=== PATIENT | female | born 1955 | race Caucasian/White ===

== ENCOUNTER 2022-05-09 20:42 | Inpatient (IN) ==
[2022-05-09 21:23] LABS: Basophils % 0.7 %; Eosinophils # 0.2 K/mcL (0.0-0.6); Eosinophils % 2.8 %; Hematocrit 32.2 % (35.3-44.9); Hemoglobin 10.6 g/dL (11.5-15.4); Immature Granulocytes % 0.3 % (0-4); Lymphocytes # 1.9 K/mcL (0.6-4.6); Lymphocytes % 30.6 %; Mean Corpuscular HGB Conc 32.9 g/dL (31.6-35.5); Mean Corpuscular Hemoglobin 30.5 pg (28.0-33.3); Mean Corpuscular Volume 92.5 fL (83.0-100.0); Mean Platelet Volume 8.4 fL (9.4-12.4); Monocytes # 0.6 K/mcL (0.0-1.3); Monocytes % 9.4 %; Neutrophils # 3.4 K/mcL (1.6-8.9); Platelet Count 389 K/mcL (140-400); Red Blood Count 3.48 M/mcL (3.82-4.97); Red Cell Distribution Width 13.6 % (11.5-14.5); Segmented Neutrophils % 56.2 %; White Blood Count 6.1 K/mcL (4.3-11.1)
[2022-05-09 21:43] LABS: Calcium 9.6 mg/dL (8.6-10.3); Potassium 4.2 mEq/L (3.5-5.1)
[2022-05-09 21:58] LABS: Bacteria,Urine Few per hpf (None-Few); Bilirubin,Urine Negative (Negative); Blood,Urine Negative (Negative); Clarity,Urine Clear (Clear); Color,Urine Light-Yellow (Yellow); Glucose,Urine (UA) Normal (Normal); Ketones,Urine Negative (Negative); Leukocyte Esterase,Urine Moderate (Negative); Nitrite,Urine Positive (Negative); Protein,Urine Negative (Neg-Trace); Specific Gravity,Urine 1.018 (1.010-1.025); Squamous Epithelial Cell,Urine Few per hpf (None-Few); Urobilinogen,Urine Normal (Normal); WBC,Urine 50-100 per hpf (0-3)
[2022-05-09] MEDS ORDERED: Ertapenem 1,000 MG in 0.9 % Sodium Chloride Mini Bag 100 ML IVPB ONE (22:10)
[2022-05-09] MEDS ORDERED: Naloxone 0.4 MG/ML INJ IVP PRN (22:30)
[2022-05-09] MEDS ORDERED: Melatonin 3 MG TABLET PO PRN (22:30)
[2022-05-09] MEDS ORDERED: Ondansetron ODT 4 MG TAB.RAPDIS SL PRN (22:30)
[2022-05-09] MEDS ORDERED: Dextrose Gel 15 GM/37.5 ML TUBE PO PRN ×2 (22:37)
[2022-05-09] MEDS ORDERED: *HR* Dextrose 50 % in Water (Syg) 50 ML SYRINGE IVP PRN (22:37)
[2022-05-09] MEDS ORDERED: D5% in Water 1,000 ML IVC PRN (22:37)
[2022-05-10] MEDS ORDERED: 0.9 % Sodium Chloride 1,000 ML IVC SCH (00:45)
[2022-05-10 05:22] LABS: Hematocrit 30.2 % (35.3-44.9); Hemoglobin 9.9 g/dL (11.5-15.4); Mean Corpuscular HGB Conc 32.8 g/dL (31.6-35.5); Mean Corpuscular Hemoglobin 30.4 pg (28.0-33.3); Mean Corpuscular Volume 92.6 fL (83.0-100.0); Mean Platelet Volume 8.3 fL (9.4-12.4); Platelet Count 328 K/mcL (140-400); Red Blood Count 3.26 M/mcL (3.82-4.97); Red Cell Distribution Width 13.5 % (11.5-14.5); White Blood Count 5.2 K/mcL (4.3-11.1)
[2022-05-10 05:42] LABS: Calcium 8.8 mg/dL (8.6-10.3); Magnesium 1.9 mg/dL (1.6-2.6); Phosphorous 3.4 mg/dL (2.7-4.5); Potassium 4.4 mEq/L (3.5-5.1)
[2022-05-10] MEDS: Insulin LISPRO 300 UNITS/3 ML VIAL SUBQ SCH ×4 (08:10→21:27)
[2022-05-10] MEDS: lisinopriL 10 MG TABLET PO SCH (18:33)
[2022-05-10] MEDS: CycloSPORINE, Mod (Neoral) 25 MG CAPSULE PO SCH (18:33)
[2022-05-10] MEDS: Pregabalin 25 MG CAPSULE PO SCH (21:26)
[2022-05-10] MEDS: mycophenolate mofetiL 250 MG CAPSULE PO SCH (21:27)
[2022-05-10] MEDS: Ertapenem 1,000 MG in 0.9 % Sodium Chloride Mini Bag 100 ML IVPB SCH (21:27)
[2022-05-10] MEDS: polyethylene glycoL 3350 17 GM POWD.PACK PO SCH (21:28)
[2022-05-10] MEDS: Insulin DETEMIR 100 UNIT/ML X5UNITS SUBQ SCH (21:41)
[2022-05-11 05:28] LABS: Eosinophils # 0.2 K/mcL (0.0-0.6); Eosinophils % 3.8 %; Hematocrit 32.5 % (35.3-44.9); Hemoglobin 10.6 g/dL (11.5-15.4); Lymphocytes # 1.7 K/mcL (0.6-4.6); Lymphocytes % 42.2 %; Mean Corpuscular HGB Conc 32.6 g/dL (31.6-35.5); Mean Corpuscular Hemoglobin 29.9 pg (28.0-33.3); Mean Corpuscular Volume 91.5 fL (83.0-100.0); Mean Platelet Volume 9.2 fL (9.4-12.4); Monocytes # 0.4 K/mcL (0.0-1.3); Monocytes % 10.6 %; Neutrophils # 1.7 K/mcL (1.6-8.9); Platelet Count 335 K/mcL (140-400); Red Blood Count 3.55 M/mcL (3.82-4.97); Red Cell Distribution Width 13.2 % (11.5-14.5); Segmented Neutrophils % 42.4 %
[2022-05-11 05:47] LABS: BUN/Creatinine Ratio 17 (6-26); Blood Urea Nitrogen 12 mg/dL (8-23); Calcium 9.4 mg/dL (8.6-10.3); Carbon Dioxide 24 mEq/L (23-29); Chloride 102 mEq/L (98-107); Glucose 106 mg/dL (70-105); Osmolality,Calculated 276 (280-300); Potassium 3.9 mEq/L (3.5-5.1); Sodium 133 mEq/L (136-145)
[2022-05-11] MEDS: Insulin LISPRO 300 UNITS/3 ML VIAL SUBQ SCH ×4 (07:33→19:32)
[2022-05-11] MEDS: clonazePAM 0.5 MG TABLET PO SCH (09:00)
[2022-05-11] MEDS ORDERED: NON-FORMULARY MEDICATION 1 EACH EACH (Omega-3/Dha/Epa/Fish Oil [Fish Oil 1,000 Mg Softgel] PO SCH (09:00)
[2022-05-11] MEDS ORDERED: Ezetimibe [Zetia] 10 MG Tablet PO SCH (09:00)
[2022-05-11] MEDS: Aspirin Enteric Coated 81 MG Tablet PO SCH (09:00)
[2022-05-11] MEDS ORDERED: NON-FORMULARY MEDICATION 1 EACH EACH (Calcium Citrate 200 MG Tablet) PO SCH (09:00)
[2022-05-11] MEDS: mycophenolate mofetiL 250 MG CAPSULE PO SCH ×2 (09:00→21:29)
[2022-05-11] MEDS: Lactobacillus 1 EACH CAP.SPRINK PO SCH (09:00)
[2022-05-11] MEDS: polyethylene glycoL 3350 17 GM POWD.PACK PO SCH ×2 (09:01→21:33)
[2022-05-11] MEDS: Multivit/Ca/Min/Fe/FA 1 TAB TABLET PO SCH (09:01)
[2022-05-11] MEDS: CycloSPORINE, Mod (Neoral) 25 MG CAPSULE PO SCH ×2 (09:01→20:15)
[2022-05-11] MEDS: Pregabalin 25 MG CAPSULE PO SCH ×2 (09:06→21:32)
[2022-05-11] MEDS: lisinopriL 10 MG TABLET PO SCH (20:15)
[2022-05-11] MEDS ORDERED: lisinopriL 10 MG TABLET PO SCH (21:00)
[2022-05-11] MEDS ORDERED: CycloSPORINE, Mod (Neoral) 25 MG CAPSULE PO SCH (21:00)
[2022-05-11] MEDS: Ertapenem 1,000 MG in 0.9 % Sodium Chloride Mini Bag 100 ML IVPB SCH (21:29)
[2022-05-11] MEDS: Insulin DETEMIR 100 UNIT/ML X5UNITS SUBQ SCH (21:32)
[2022-05-12 06:40] VITALS: O2SAT 95
[2022-05-12] MEDS: Insulin LISPRO 300 UNITS/3 ML VIAL SUBQ SCH ×2 (08:07→12:08)
[2022-05-12] MEDS: mycophenolate mofetiL 250 MG CAPSULE PO SCH (10:37)
[2022-05-12] MEDS: clonazePAM 0.5 MG TABLET PO SCH (10:38)
[2022-05-12] MEDS: Lactobacillus 1 EACH CAP.SPRINK PO SCH (10:38)
[2022-05-12] MEDS: polyethylene glycoL 3350 17 GM POWD.PACK PO SCH (10:38)
[2022-05-12] MEDS: CycloSPORINE, Mod (Neoral) 25 MG CAPSULE PO SCH (10:38)
[2022-05-12] MEDS: Pregabalin 25 MG CAPSULE PO SCH (10:38)
[2022-05-12] MEDS: Aspirin Enteric Coated 81 MG Tablet PO SCH (10:38)
[2022-05-12] MEDS: Multivit/Ca/Min/Fe/FA 1 TAB TABLET PO SCH (10:38)
[2022-05-12 11:49] VITALS: BP 114/70; PULSE 75; TEMP 98.8
[2022-05-12] MEDS ORDERED: Ertapenem 1,000 MG in 0.9 % Sodium Chloride Mini Bag 100 ML IVPB SCH (16:00)
== END 2022-05-12 15:58 | disposition home health service (06) | DRG 690 ==
LOC: EMEROOARM 20:42 → 2ANU 20:42 → SUATTDRO 22:39 → 2ANU 23:26
PROVIDERS: ADMIT Student in an Organized Health Care Education/Training Program; ATTEND Family Medicine